=== PATIENT | female | born 1980 | race Caucasian/White ===

== ENCOUNTER 2023-08-02 10:56 | Emergency (ER) | payer OTHER ==
[2023-08-02 11:02] VITALS: BP 121/86; PULSE 69; RESP 18; TEMP 98.9; BMI 19.8
[2023-08-02] MEDS ORDERED: LIDOCAINE 4% PATCH TP ONE (11:41)
[2023-08-02] MEDS ORDERED: KETOROLAC TROMETHAMINE 30 MG/1 ML VIAL ONE (11:42)
[2023-08-02] MEDS ORDERED: CYCLOBENZAPRINE HCL 10 MG TABLET (FP) ONE (11:42)
[2023-08-02] MEDS: LIDOCAINE 5% TOPICAL PATCH TP ONE (11:47)
[2023-08-02] MEDS: KETOROLAC TROMETHAMINE 30 MG/1 ML VIAL IM ONE (11:47)
[2023-08-02] MEDS: CYCLOBENZAPRINE HCL 10 MG TABLET (FP) PO ONE (11:47)
[2023-08-02] MEDS ORDERED: LIDOCAINE PATCH REMOVAL MC ONE (22:00)
== END 2023-08-02 12:35 | disposition home or self-care (01) ==
LOC: JERFT 10:56
PROC: 3E0233Z Introduction of Anti-inflammatory into Muscle, Percutaneous Approach (ICD-10-PCS; principal; 2023-08-02)
DX: M54.6 Pain in thoracic spine (principal); M62.830 Muscle spasm of back
CPT/HCPCS: 99284-25